=== PATIENT | female | born 1980 | race Caucasian/White ===

== ENCOUNTER 2018-02-25 21:02 | Emergency (ER) | END 2018-02-26 01:22 | disposition home or self-care (01) ==

== ENCOUNTER 2019-02-05 18:16 | Emergency (ER) | payer MEDICAID ==
[~2019-02-05] VITALS: Ht 142.2 cm; Wt 89.1 kg
[~2019-02-05 18:16] MED LIST: CYCL10TA7 PO; HYDR-4011 PO; IBUP-1542 PO; IBUP800T48 PO; TRAM50TA PO
[2019-02-05 18:23] VITALS: BP 115/73; PULSE 85; RESP 16; Ht 142.2 cm; Wt 89.1 kg
== END 2019-02-05 18:40 | disposition home or self-care (01) ==
LOC: E/R 18:16
DX: M54.5 Low back pain (principal)
CPT/HCPCS: 99283